=== PATIENT | female | born 1980 | race Caucasian/White ===

== ENCOUNTER 2017-05-11 08:23 | Emergency (ER) | payer OTHER ==
[2017-05-11 09:11] VITALS: BP 103/67
--- NOTE | 2017-05-13 08:19 | ED ---
Cortez Glaser Thomas, scribed for Alexis Whitley MD on 05/11/17 at 0843 . Complex/Multi-Sys Presentation - HPI Summary HPI Summary: The patient is a 37 year old female presenting to the emergency department complaining of a fever, cough, body aches, nasal discharge, headache, and congestion for the last two days. The patient has treated the symptoms with acetaminophen today at 06:30. - History Of Current Complaint Chief Complaint: EDGeneral Time Seen by Provider: 05/11/17 08:26 Hx Obtained From: Patient Onset/Duration: Lasting Days - 2, Still Present Timing: Constant Severity Currently: Moderate Severity Initially: Moderate Alleviating Factor(s): Acetaminophen Associated Signs And Symptoms: Positive: Other - Cough, congestion, fever, body aches, nasal discharge, headache - Allergies/Home Medications Allergies/Adverse Reactions: Allergies Allergy/AdvReac Type Severity Reaction Status Date / Time No Known Allergies Allergy Verified 05/12/17 01:18 PMH/Surg Hx/FS Hx/Imm Hx Endocrine/Hematology History: Reports: Hx Anemia - USUALLY AFTER SURGURIES Denies: Hx Diabetes Cardiovascular History: Denies: Hx Hypertension, Hx Pacemaker/ICD Respiratory History: Denies: Hx Asthma GI History: Reports: Hx Irritable Bowel - NO MEDS, Other GI Disorders - HEMORRHOID X 1 History: Reports: Other Problems/Disorders - HX OF UTI - NONE NOW Musculoskeletal History: Reports: Hx Scoliosis Sensory History: Denies: Hx Contacts or Glasses, Hx Hearing Aid Opthamlomology History: Denies: Hx Contacts or Glasses Neurological History: Reports: Hx Migraine - 4 PER MONTH Denies: Other Neuro Impairments/Disorders Psychiatric History: Reports: Hx Anxiety - CONTROL WITH MEDS Denies: Hx Panic Disorder - Surgical History Surgery Procedure, Year, and Place: 2000, 2004, 2005, 2006 CSECTION X 4, WITH BILATERAL TUBAL LIGATION IN 2006, [facility] [place]. WISDOM TEETH EXTRACTION, AND ONE FOR INFECTED TEETH, [facility]. DILATION AND CURETTAGE X 2, [facility]. 2010 UTERINE ABLATION, [facility]. 2010 LEEP, [facility]. 2012 COLONOSCOPY, [facility]. TOTAL HYSTERECTOMY 2015 Hx Anesthesia Reactions: No Infectious Disease History: No Infectious Disease History: Denies: Traveled Outside the [place] in Last 30 Days - Family History Known Family History: Negative: Diabetes - Social History Alcohol Use: None Substance Use Type: Reports: None Smoking Status (MU): Never Smoked Tobacco Review of Systems Positive: Fever Positive: Nasal Discharge Positive: Cough, Other - Chest congestion Positive: Myalgia Positive: Headache All Other Systems Reviewed And Are Negative: Yes Physical Exam - Summary Physical Exam Summary: VITAL SIGNS: Reviewed. GENERAL: Patient is a well-developed and nourished female who is lying comfortable in the stretcher. Patient is not in any acute respiratory distress. HEAD AND FACE: No signs of trauma. No ecchymosis, hematomas or skull depressions. No sinus tenderness. EYES: PERRLA, EOMI x 2, No injected conjunctiva, no nystagmus. EARS: Hearing grossly intact. Ear canals and tympanic membranes are within normal limits. MOUTH: Oropharynx within normal limits. There is pharngeal erythema. NOSE: She has nasal discharge. NECK: Supple, trachea is midline, no adenopathy, no JVD, no carotid bruit, no c- spine tenderness, neck with full ROM. CHEST: Symmetric, no tenderness at palpation LUNGS: Clear to auscultation bilaterally. No wheezing or crackles. CVS: Regular rate and rhythm, S1 and S2 present, no murmurs or gallops appreciated. ABDOMEN: Soft, non-tender. No signs of distention. No rebound no guarding, and no masses palpated. Bowel sounds are normal. EXTREMITIES: FROM in all major joints, no edema, no cyanosis or clubbing. NEURO: Alert and oriented x 3. No acute neurological deficits. Speech is normal and follows commands. SKIN: Dry and warm Triage Information Reviewed: Yes Vital Signs On Initial Exam: Initial Vitals Temp Pulse Resp BP Pulse Ox 100.7 F 103 20 98/72 98 05/11/17 08:25 05/11/17 08:25 05/11/17 08:25 05/11/17 08:25 05/11/17 08:25 Vital Signs Reviewed: Yes Diagnostics - Vital Signs Vital Signs Temp Pulse Resp BP Pulse Ox 05/11/17 08:25 100.7 F 103 20 98/72 98 - Laboratory Lab Results: Lab Results 05/11/17 05/11/17 Range/Units 08:44 08:48 Influenza A (Rapid) Positive H (Negative) Influenza B (Rapid) Negative (Negative) Group A Strep Rapid Negative (Negative) Lab Statement: Any lab studies that have been ordered have been reviewed, and results considered in the medical decision making process. Complex Multi-Symp Course/Dx Assessment/Plan: The patient is a 37 year old female presenting to the emergency department complaining of a fever, cough, body aches, nasal discharge , headache, and congestion for the last two days. Influenza A is positive. The patient will be discharged home with Tamiflu. She will follow up with her primary care provider. - Diagnoses Provider Diagnoses: Influenza Discharge - Discharge Plan Condition: Stable Disposition: HOME Prescriptions: Oseltamivir CAP* [Tamiflu CAP*] 75 mg PO BID #10 cap Patient Education Materials: Influenza (ED) Referrals: Mercedez Nunes MD [Primary Care Provider] - 3 Days Additional Instructions: Follow up with your primary care provider in three days. Return to the emergency department for any new or worsening symptoms. The documentation as recorded by the Cortez castanon Thomas accurately reflects the service I personally performed and the decisions made by Gutierrez eli Walter, MD.
== END 2017-05-11 09:11 | disposition home or self-care (01) ==
LOC: ED 08:23
DX: J11.1 Influenza due to unidentified influenza virus with other respiratory manifestations (principal)
CPT/HCPCS: 87502; 87651; 99282

== ENCOUNTER 2017-05-11 22:58 | Emergency (ER) | payer OTHER ==
[2017-05-12] MEDS ORDERED: Metoclopramide IV* 5 MG/ML 2 ML VIAL IV SLOW PU ONE (01:19)
[2017-05-12] MEDS ORDERED: NS 0.9% 1000 ML* 1,000 ML IV ONE (01:19)
[2017-05-12] MEDS ORDERED: Pantoprazole IV* 40 MG IV ONE (01:20)
[2017-05-12] MEDS ORDERED: LORazepam INJ* 2 MG/ML 1 ML VIAL ONE (02:04)
[2017-05-12] MEDS ORDERED: LORazepam INJ* 2 MG/ML 1 ML VIAL IV PUSH ONE (02:06)
--- NOTE | 2017-05-12 03:32 | ED ---
Radames Glaser Angela, scribed for Mary Yanes MD on 05/12/17 at 0117 . Influenza-Like Illness - HPI Summary HPI Summary: This pt is a 37 y/o female presenting to [facility] c/o nausea and vomiting x3 hours. Pt reports she was in the ED yesterday (05/11/17) and tested positive for influenza A. She was prescribed Tamiflu. Pt states that after she took the second dose of Tamiflu, she began to feel nauseous. She notes nausea and vomiting for the past couple of hours. Pt denies diarrhea. - History of Current Complaint Chief Complaint: EDNauseaVomitDiarrh Time Seen by Provider: 05/12/17 01:08 Hx Obtained From: Patient Onset/Duration: Lasting Hours, Still Present Severity: Moderate Associated Signs & Symptoms: Vomiting - Allergy/Home Medications Allergies/Adverse Reactions: Allergies Allergy/AdvReac Type Severity Reaction Status Date / Time No Known Allergies Allergy Verified 05/12/17 01:18 PMH/Surg Hx/FS Hx/Imm Hx Endocrine/Hematology History: Reports: Hx Anemia - USUALLY AFTER SURGURIES Denies: Hx Diabetes Cardiovascular History: Denies: Hx Hypertension, Hx Pacemaker/ICD Respiratory History: Denies: Hx Asthma GI History: Reports: Hx Irritable Bowel - NO MEDS, Other GI Disorders - HEMORRHOID X 1 History: Reports: Other Problems/Disorders - HX OF UTI - NONE NOW Musculoskeletal History: Reports: Hx Scoliosis Sensory History: Denies: Hx Contacts or Glasses, Hx Hearing Aid Opthamlomology History: Denies: Hx Contacts or Glasses Neurological History: Reports: Hx Migraine - 4 PER MONTH Denies: Other Neuro Impairments/Disorders Psychiatric History: Reports: Hx Anxiety - CONTROL WITH MEDS Denies: Hx Panic Disorder - Surgical History Surgery Procedure, Year, and Place: 2000, 2004, 2005, 2006 CSECTION X 4, WITH BILATERAL TUBAL LIGATION IN 2006, [facility] WISDOM TEETH EXTRACTION, AND ONE FOR INFECTED TEETH, [facility]. DILATION AND CURETTAGE X 2, [facility]. 2009 UTERINE ABLATION, [facility] 2010 LEEP, [facility]. 2012 COLONOSCOPY, [facility] TOTAL HYSTERECTOMY 2015 Hx Anesthesia Reactions: No Infectious Disease History: No Infectious Disease History: Denies: Traveled Outside the [place] in Last 30 Days - Family History Known Family History: Positive: Cardiac Disease Family History: Father: [place]. Maternal grandmother: colon [place]. - Social History Alcohol Use: None Substance Use Type: Reports: None Smoking Status (MU): Never Smoked Tobacco Review of Systems Negative: Fever, Chills ENT: Other - flu symptoms Positive: Vomiting, Nausea. Negative: Diarrhea Skin: Negative Neurological: Negative All Other Systems Reviewed And Are Negative: Yes Physical Exam - Summary Physical Exam Summary: VITAL SIGNS: Reviewed. GENERAL: Patient is a well-developed and nourished female who is lying comfortable in the stretcher. Patient is not in any acute respiratory distress. HEAD AND FACE: No signs of trauma. No ecchymosis, hematomas or skull depressions. No sinus tenderness. EYES: PERRLA, EOMI x 2, No injected conjunctiva, no nystagmus. EARS: Hearing grossly intact. Ear canals and tympanic membranes are within normal limits. MOUTH: Oropharynx within normal limits. NECK: Supple, trachea is midline, no adenopathy, no JVD, no carotid bruit, no c- spine tenderness, neck with full ROM. CHEST: Symmetric, no tenderness at palpation LUNGS: Clear to auscultation bilaterally. No wheezing or crackles. CVS: Regular rate and rhythm, S1 and S2 present, no murmurs or gallops appreciated. ABDOMEN: Soft, non-tender. No signs of distention. No rebound no guarding, and no masses palpated. Hyperactive bowel sounds. EXTREMITIES: FROM in all major joints, no edema, no cyanosis or clubbing. NEURO: Alert and oriented x 3. No acute neurological deficits. Speech is normal and follows commands. SKIN: Dry and warm Triage Information Reviewed: Yes Vital Signs On Initial Exam: Initial Vitals Temp Pulse Resp BP Pulse Ox 98.9 F 116 20 108/75 99 05/11/17 23:12 05/11/17 23:12 05/11/17 23:12 05/11/17 23:12 05/11/17 23:12 Vital Signs Reviewed: Yes Diagnostics - Vital Signs Vital Signs Temp Pulse Resp BP Pulse Ox 05/11/17 23:12 98.9 F 116 20 108/75 99 - Laboratory Lab Statement: Any lab studies that have been ordered have been reviewed, and results considered in the medical decision making process. Flu Symptom Course/Dx - Course Assessment/Plan: This pt is a 37 y/o female presenting to [facility] c/o nausea and vomiting x3 hours. Pt reports she was in the ED yesterday (05/11/17) and tested positive for influenza A. She was prescribed Tamiflu. Pt states that after she took the second dose of Tamiflu, she began to feel nauseous. She notes nausea and vomiting for the past couple of hours. Pt denies diarrhea. In the ED course the pt was given IV fluids, Reglan, and Protonix. Pt is feeling better. Pt will be discharged home with a prescription for Reglan. She is advised to follow up with her PCP. Pt is instructed to return to the ED for any worsening or new symptoms. - Diagnoses Provider Diagnoses: Vomiting Discharge - Discharge Plan Condition: Stable Disposition: HOME Prescriptions: Metoclopramide TAB* [Reglan TAB*] 10 mg PO Q8H PRN #20 tab PRN Reason: Nausea/Vomiting Patient Education Materials: Acute Nausea and Vomiting (ED) Referrals: Mercedez Nunes MD [Primary Care Provider] - Additional Instructions: Please follow up with your primary care provider. RETURN TO EMERGENCY DEPARTMENT FOR ANY NEW OR WORSENING SYMPTOMS. The documentation as recorded by the Radames castanon Angela accurately reflects the service I personally performed and the decisions made by , Mary Yanes MD.
[2017-05-12 05:24] VITALS: BP 96/59
== END 2017-05-12 03:35 | disposition home or self-care (01) ==
LOC: ED 22:58
DX: R11.10 Vomiting, unspecified (principal); F41.9 Anxiety disorder, unspecified
CPT/HCPCS: 96360; 96374; 96375; 99283; J2060; J2765